=== PATIENT | male | born 1955 | race African-American/Black ===

== ENCOUNTER 2018-11-22 02:30 | Emergency (ER) | payer OTHER ==
[~2018-11-22] VITALS: Ht 190.5 cm; Wt 90.7 kg
[2018-11-22 02:52] VITALS: BP 114/59
--- NOTE | 2018-11-22 02:52 | NUR ---
ED Nurse Note: Pt reports being unable to urinate since this morning, 06/22 pain. ao4. nad. vss.
--- NOTE | 2018-11-22 02:53 | NUR ---
ED Nurse Note: ermd at bedside for us.
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
--- NOTE | 2018-11-22 03:00 | NUR ---
ED Nurse Note: cook inserted. urine collected; sent down to lab.
[2018-11-22 03:15] LABS: APPEARANCE,URINE CLEAR; BILIRUBIN, URINE NEGATIVE (NEGATIVE); GLUCOSE, URINE (UA) NEGATIVE (NEGATIVE); KETONES,URINE 1+ (NEGATIVE); LEUKOCYTE ESTERASE ,URINE 1+ (NEGATIVE); NITRITE,URINE NEGATIVE (NEGATIVE); PH,URINE 5 (4.5-8.0); PROTEIN,URINE 2+ (NEGATIVE); UROBILINOGEN,URINE 1 MG/DL (0.0-1.0)
[2018-11-22 03:29] LABS: COLOR,URINE YELLOW
--- NOTE | 2018-11-22 03:40 | NUR ---
ED Nurse Note: cook catheter discontinued.
[2018-11-22 03:47] VITALS: BP 126/64
--- NOTE | 2018-11-22 03:47 | NUR ---
ER DISCHARGE NOTE: Patient is cleared to be discharged per ERMD, pt is aox4, on room air, with stable vital signs. pt was given dc and prescription instructions, pt was able to verbalize understanding, pt id band removed. pt is able to ambulate with steady gait. pt took all belongings.
[2018-11-22] MEDS ORDERED: MACROBID100 MG ORAL (03:49)
== END 2018-11-22 03:47 | disposition home or self-care (01) ==
LOC: EMR 02:58
DX: R33.9 Retention of urine, unspecified (principal); N30.00 Acute cystitis without hematuria; F14.10 Cocaine abuse, uncomplicated; F11.10 Opioid abuse, uncomplicated; F17.200 Nicotine dependence, unspecified, uncomplicated
CPT/HCPCS: 80307; 81003; Z7502; 51702; 99284